=== PATIENT | female | born 1975 ===

== ENCOUNTER 2020-12-29 14:01 | Outpatient (CLI) | payer BC | END 2020-12-29 23:59 | disposition home or self-care (01) | LOC: CARD DIAG 14:01 | PROVIDERS: ATTEND Internal Medicine Hematology | DX: C50.211 Malignant neoplasm of upper-inner quadrant of right female breast (principal); I34.0 Nonrheumatic mitral (valve) insufficiency | CPT/HCPCS: 93306 ==